=== PATIENT | male | born 1940 | race Caucasian/White ===

== ENCOUNTER 2020-05-17 17:38 | Emergency (ER) | payer BC ==
[~2020-05-17] VITALS: Ht 182.8 cm; Wt 99.8 kg
[~2020-05-17 17:38] MED LIST: AMBIEN 5 MG TABL5 M1 PO; ASPIRIN325 PO; BACTRIM DS TAB1 EACH PO; DAILY VITAMIN1 EAC5 PO; FISH OIL 1,001000 M2 PO; KEFLEX500 MG PO
[2020-05-17] MEDS ORDERED: PHARBETOL325 MG PO (17:50)
[2020-05-17] MEDS ORDERED: AMITRIPTYLINE150 MG PO (17:50)
[2020-05-17] MEDS ORDERED: CILOSTAZOL50 MG PO (17:51)
[2020-05-17] MEDS ORDERED: CALCIUM500 MG PO (17:51)
[2020-05-17] MEDS ORDERED: CHEWABLE-VITE1 EAC1 PO (17:51)
[2020-05-17 18:12] LABS: HEMATOCRIT 29.8 % (42.0-52.0); HEMOGLOBIN 9.9 gm/dL (14.0-18.0); MCH 28.7 pg (26.0-34.0); MCHC 33.2 g/dL (28.0-37.0); MCV 86.2 fL (80.0-100.0); MPV 6.2 fl. (7.2-11.1); NUCLEATED RBCS 0 /100WBC; PLATELET COUNT* 730 thou/uL (150-400); RBC 3.45 mil/uL (4.50-6.00); RDW-CV 16.3 % (10.5-14.5); WBC 20.8 thou/uL (4.0-11.0)
[2020-05-17 18:23] LABS: CALCIUM 9.4 mg/dL (8.5-10.1); POTASSIUM 4.7 mmol/L (3.5-5.1)
[2020-05-17 18:25] LABS: APTT 27.5 Seconds (25.0-31.3); INR 1.1; PROTIME 10.9 Seconds (9.20-11.50)
[2020-05-17 18:34] LABS: TOTAL BILIRUBIN 0.4 mg/dL (<0.1-1.0); TOTAL PROTEIN 8.2 g/dL (6.4-8.2)
[2020-05-17 18:48] LABS: ABSOLUTE LYMPHOCYTES 2.3 thou/uL (0.8-5.3); ABSOLUTE NEUTROPHILS 17.5 thou/uL (1.6-8.1); ANISOCYTOSIS 1+; PLATELET ESTIMATE INCREASED
[2020-05-17 22:30] VITALS: BP 132/71
--- NOTE | 2020-05-18 09:41 | EKG ---
[place] [address] ELECTROCARDIOGRAM REPORT Name: HECTOR VINSON JR Room: [facility]#: [id number] Admission: 05/17/20 Attend Phys: Discharge: 05/17/20 Date of : 40 Date of Service: 05/17/201801 Report #: [id number] THIS REPORT FOR: //name// [facility] ED Test Date: 2020-05-17 Test Time: 18:02:50 Pat Name: HECTOR VINSON Department: Room: Gender: [employer]: [facility] : 1940 Requested By: Mulugeta Bradford Order Number: [id number] MD: Barrett García Measurements Intervals [place] Rate: 119 P: -90 SD: 172 QRS: -26 QRSD: 91 T: 76 QT: 301 QTc: 424 Interpretive Statements Sinus tachycardia Borderline left axis deviation Compared to ECG 08/16/2015 07:44:24 Sinus bradycardia no longer present First degree AV block no longer present Electronically Signed On 05-18-2020 9:41:01 CDT by Barrett García [email or web address] <ELECTRONICALLY SIGNED> By: Barrett García MD, FACC 05/18/20 0941 180 01 Barrett García MD, FAC /EPI
== END 2020-05-17 22:30 | disposition short-term general hospital (02) ==
LOC: M.ERS 17:38
PROVIDERS: Emergency Medicine Emergency Medical Services
DX: A41.9 Sepsis, unspecified organism (principal); F32.9 Major depressive disorder, single episode, unspecified; F41.9 Anxiety disorder, unspecified; F17.220 Nicotine dependence, chewing tobacco, uncomplicated; Z20.828 Contact with and (suspected) exposure to other viral communicable diseases; Z86.718 Personal history of other venous thrombosis and embolism; Z96.659 Presence of unspecified artificial knee joint; Z88.8 Allergy status to other drugs, medicaments and biological substances